=== PATIENT | female | born 1950 | race Caucasian/White ===

== ENCOUNTER 2020-03-08 21:53 | Observation (INO) | payer MEDICARE, MEDICAID ==
[~2020-03-08] VITALS: Ht 167.6 cm; Wt 116.1 kg
[2020-03-08 21:54] VITALS: BP 132/86
[2020-03-08 22:19] LABS: BASOPHIL % 0.4 % (0.0-0.2); EOSINOPHIL # 0.2 10^3/uL (0.0-0.2); EOSINOPHIL % 2.6 % (0.0-5.0); LYMPHOCYTES # 2.64 10^3/uL1 (1.0-4.8); LYMPHOCYTES % 32.2 % (24.0-44.0); MEAN CORP HGB 29.7 pg (26-34); MONOCYTES # 0.6 10^3/uL (0.3-0.8); MONOCYTES % 7.8 % (5.0-12.0); NEUTROPHIL # 4.7 10^3/uL (1.8-7.7); NEUTROPHILS % 56.8 % (41.0-85.0); PLATELET COUNT 325 10^3/uL (150-400); RED CELL DISTRIBUTION WIDTH 12.6 % (11.5-14.5)
[2020-03-08 22:30] VITALS: BP 159/88
[2020-03-08 22:48] LABS: ALANINE AMINOTRANSFERASE(ML) 23 U/L (12-78); ALKALINE PHOSPHATASE 75 U/L (50-136); ASPARTATE AMINO TRANSFERASE 10 U/L (0-35); CALCIUM 9.1 mg/dL (8.4-10.5); CARBON DIOXIDE 31.2 mmol/L (20.0-32); GLUCOSE 351 mg/dL (70-110)
--- NOTE | 2020-03-08 22:53 | DIREP ---
PROCEDURE:CHEST 1 VIEW COMPARISON:None. INDICATIONS:Chest pain FINDINGS: LUNGS/PLEURA:No significant pulmonary parenchymal abnormalities. No effusions. VASCULATURE:Normal. Unremarkable pulmonary vasculature. CARDIAC: Left subclavian cardiac pacing device. MEDIASTINUM:Normal. No visible mass or adenopathy. BONES:Normal. No fracture or visible bony lesion. OTHER:Negative. CONCLUSION: 1. No acute cardiopulmonary abnormality. Dictated by: Mo Canales Jr. on 03/08/2020 at 10:52 PM
[2020-03-08 23:00] VITALS: BP 143/71
--- NOTE | 2020-03-08 23:07 | ER.PDOC ---
General Chief Complaint: Chest Pain-Cardiac Nature Stated Complaint: CHEST PAIN Time seen by MD: 23:00 Source: patient Exam Limitations: no limitations History of Present Illness Initial Comments Chest pain mid chest radiating to left neck for 1 hour. Pain is 4/10. Timing/Duration: 1 hour Severity/Quality: moderate, pressure Radiation: neck Activities at Onset: rest Prior CP/Workup: No Prior Chest Pain Nitro Today/Relief: 0.4 mg x 1, Complete Relief Aspirin Today: 325 mg x 1 Associated Symptoms: shortness of breath Allergies: Coded Allergies: latex (Verified Allergy, Severe, RASH, 03/08/20) Uncoded Allergies: ADHESIVES (Allergy, Severe, RASH, 03/08/20) Past Medical History Medical History: cardiac problems, diabetes, hypertension Surgical History: back, pacemaker/ICD Social History Alcohol Use: none Drug Use: none Constitutional: no symptoms reported EENTM: no symptoms reported Respiratory: see HPI Cardiovascular: see HPI Gastrointestinal: no symptoms reported Genitourinary: no symptoms reported Musculoskeletal: no symptoms reported All Other Systems: Reviewed and Negative Physical Exam General Appearance: Obese Neck: Non-Tender, Full Range of Motion, Supple, Normal Inspection Respiratory: chest non-tender, lungs clear, normal breath sounds, no respiratory distress, no accessory muscle use Cardiovascular: Normal Peripheral Pulses, Regular Rate, Rhythm, No Edema, No Gallop, No JVD, No Murmur Gastrointestinal: Normal Bowel Sounds, No Organomegaly, No Pulsatile Mass, Non Tender, Soft Extremities: Normal Range of Motion, Non-Tender, Normal Inspection, No Pedal Edema, No Calf Tenderness, Normal Capillary Refill Neurologic/Psychiatric: lease analyst II-XII NML as Tested, No Motor/Sensory Deficits, Alert, Normal Mood/Affect, Oriented x 3 Skin: Normal Color, Warm/Dry Lymphatic: No Adenopathy Results/Orders Results/Orders Orders - LEÓN CHANG MD Cbc With Auto Diff (03/08/20 22:01) Comprehensive Metabolic Panel (03/08/20 22:01) Creatine Kinase (03/08/20 22:01) Creatine Kinase Mb (03/08/20 22:01) Troponin I (03/08/20 22:01) Probnp B-Type Director Of Land Acquisition (03/08/20 22:01) PT (03/08/20 22:01) Partial Thromboplastin Time. (03/08/20 22:01) D-Dimer (03/08/20 22:01) Xr Chest 1v (03/08/20 22:01) Ekg-Routine (03/08/20 22:01) Aspirin (Aspirin) (03/08/20 23:06) Vital Signs Date Time Temp Pulse Resp B/P (MAP) Pulse Ox O2 Delivery O2 Flow Rate FiO2 03/08/20 21:54 98.2 73 16 03/08/20 21:54 98.2 73 16 132/86 (101) 98 03/08/20 21:54 98.2 73 16 98 Laboratory Tests Test 03/08/20 22:15 White Blood Count 8.2 10^3/uL (4.5-11.0) Red Blood Count 4.72 10^6/uL (4.00-5.20) Hemoglobin 14.0 g/dL (12.0-15.0) Hematocrit 41.0 % (36.0-46.0) Mean Corpuscular Volume 86.9 fL (78-100) Mean Corpuscular Hemoglobin 29.7 pg (26-34) Mean Corpuscular Hemoglobin Concent 34.1 g/dL (33-36.5) Red Cell Distribution Width 12.6 % (11.5-14.5) Platelet Count 325 10^3/uL (150-400) Mean Platelet Volume 9.8 fL (7.8-11.0) Neutrophils (%) (Auto) 56.8 % (41.0-85.0) Lymphocytes (%) (Auto) 32.2 % (24.0-44.0) Monocytes (%) (Auto) 7.8 % (5.0-12.0) Neutrophils # (Auto) 4.7 10^3/uL (1.8-7.7) Lymphocytes # (Auto) 2.64 10^3/uL1 (1.0-4.8) Monocytes # (Auto) 0.6 10^3/uL (0.3-0.8) Absolute Immature Granulocyte (auto 0.02 10^3 u/L (0-2) Absolute Eosinophils (auto) 0.2 10^3/uL (0.0-0.2) Immature Granulocytes % 0.20 % (0.00-0.50) Eosinophils % 2.6 % (0.0-5.0) Basophils % 0.4 % (0.0-0.2) H Basophils # 0.0 10^3/uL (0.0-0.1) Prothrombin Time 10.0 SEC (9.3-11.3) Prothrombin Time INR (Non-Therap) 1.0 Activated Partial Thromboplast Time 21.9 SEC (24.67-30.72) D-Dimer 0.48 mg/L (0.19-0.49) Sodium Level 135 mmol/L (132-145) Potassium Level 4.1 mmol/L (3.6-5.2) Chloride Level 95.0 mmol/L (96-109) L Carbon Dioxide Level 31.2 mmol/L (20.0-32) Anion Gap 12.9 Blood Urea Nitrogen 18 mg/dL (7-18) Creatinine 1.14 mg/dL (0.59-1.40) Estimated GFR () 57.2 (>/=60) Est GFR (CKD-EPI)(Non-Afr Macedonian) 47.3 (>/=60) BUN/Creatinine Ratio 15.0 Glucose Level 351 mg/dL (70-110) H Calcium Level 9.1 mg/dL (8.4-10.5) Total Bilirubin 0.3 mg/dL (0.2-1.0) Aspartate Amino Transferase (AST) 10 U/L (0-35) Alanine Aminotransferase (ALT) 23 U/L (12-78) Alkaline Phosphatase 75 U/L (50-136) Total Creatine Kinase 48 U/L (26-192) Creatine Kinase MB 1.1 ng/mL (0.5-3.6) Troponin I < 0.02 ng/mL (0.00-0.05) Pro-B-Type Natriuretic Peptide 417 pg/mL (0-125) H Total Protein 7.8 g/dL (6.4-8.2) Albumin 3.5 g/dL (3.4-5.0) Globulin 4.3 EKG/XRAY/CT/US EKG: NSR XRAY: chest (No active disease) Departure Time of Disposition: 23:44 Disposition: 09 ADMITTED INPATIENT Impression: Primary Impression: Chest pain Condition: Stable Referrals: PCP,UNKNOWN (PCP) PRIMARY CARE PROVIDER Comments Admitted to Dr. Ayon Duration or Time Spent with Pa: 60 min Problem Qualifiers Primary Impression: Chest pain Chest pain type: unspecified Qualified Codes: R07.9 - Chest pain, unspecified LEÓN CHANG MD Mar 08, 2020 23:07
[2020-03-08 23:30] VITALS: BP 152/68
--- NOTE | 2020-03-08 23:38 | NUR ---
Ice water provided per Dr Mcclure's instruction.
[2020-03-08] MEDS: ASPIRIN PO STA (23:52)
--- NOTE | 2020-03-08 23:52 | NUR ---
Aspirin 325 mg PO
[2020-03-09 00:46] VITALS: BP 155/85
[2020-03-09 04:41] VITALS: BP 105/55
[2020-03-09 08:54] VITALS: BP 166/76
[2020-03-09] MEDS: HUMALOG SQ SCH (09:47)
[2020-03-09] MEDS ORDERED: DEXTROSE 50%-WATER SYRINGE IV PRN (10:00)
[2020-03-09] MEDS ORDERED: TRIA1TAB3 PO (11:01)
[2020-03-09] MEDS ORDERED: INSU100I13 SQ (11:01)
[2020-03-09] MEDS ORDERED: METF10007 PO (11:01)
[2020-03-09] MEDS ORDERED: SPIR25TA PO (11:01)
--- NOTE | 2020-03-09 11:16 | PCM.EKG ---
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
--- NOTE | 2020-03-09 11:52 | PCM.HP ---
HISTORY & PHYSICAL HISTORY & PHYSICAL DATE OF ADMISSION: 03/09/20 CHIEF COMPLAINT: "funny feeling" HISTORY OF PRESENT ILLNESS: Ms. Anguiano is a very pleasant 69 y/o CF with PMHx of HTN, Insulin Dependent DM2, and hx of AICD placement for 'passing out' presents with a "funny feeling". This came on after dinner as she was walking to her car. She felt back to normal after a few seconds. She was able to continue walking to the car without falls. She did feel slightly tired after this "spell". She reports that she felt "out of it" for a few seconds and that she gets these "spells" every few months. Her primary care physician in [facility] has not been able to find anything wrong as a cause. She denies palpitations/racing herat, chest pain, chest pressure or passing out. She denies recent head trauma. She does have occasional mild headaches but none presently. She denies history of seizure activity. She denies any weakness, numbness speech changes, facial droop or confusion. She did not take her blood sugar at the time of this event. Her AICD did not fire. She denies SOB, cough, fever, dysuria, n/v, bleeding, leg swelling or sick contacts. Reports nml stress test 2mo ago. Her cart driver is Dr. Bunn. She lives in [facility] and is here visiting her brother. She has an appt scheduled with her PCP for when she gets back in town. ALLERGIES: Latex CURRENT MEDICATIONS: Spironolactone Triamterine/HCTZ Levemir 50U BID Metformin 1000mg BID PAST MEDICAL HISTORY: HTN, IDDM2, AICD, denies CAD, denies hx of CVA, denies CHF, denies hx of seizures or any other neurologic disorders SOCIAL HISTORY: Denies smoking/etoh/drug use FAMILY HISTORY: Denies REVIEW OF SYSTEMS: See HPI PHYSICAL EXAMINATION: GENERAL: Chronically ill appearing, NAD, comfortable VITAL SIGNS: BP 132/86, HR 70s, RR 16, T 98.2, O2 98% on RA HEENT: MMM, PERRL, EOMI NECK: Supple LUNGS: CTA, nonlabored on RA HEART: RRR ABDOMEN: Soft, NTND EXTREMITIES: distal pulses nml NEUROLOGIC: CN intact as tested, AOx4, no tremor, no slurred speech, nml sensation and strength in all extremities, gait nml LABORATORY DATA: EKG NSR CXR NAD Ddimer 0.48, INR 1.0, troponin < 0.02 x 2 WBC 8.2, Hgb 14.0, Hct 41.0, Plt 325 Na 135, K 4.1, Cl 95, BUN 18, Cr 1.14, Glc 333 BNP 417 IMPRESSION/PLAN: 1. Presyncopal episode--unclear etiology. Seems to have been mild. Highest on my ddx is hyper or hypoglycemic episode given elevated sugars here. Also on ddx cardiomyopathy/arrhythmia, atypical seizure, complex migraine, orthostasis or other. - VSS here and telemetry unremarkable. Troponin neg x 2. - No e/o seizure activity - She feels back to her nml self today and is requesting to leave. - I recommended echo, better blood sugar control, consideration of tele neuro consult for EEG set up and CT head to r/o any abnormalities. She declined these and prefers to see her PCP in [place]. She understands missing these diagnoses could lead to decline in medical condition or . However, I do believe the likelihood of missing a serious medical condition is very small, and it is reasonable to continue this workup as an outpatient. - ER warnings given 2. Chronic conditions -DM2--uncontrolled, declines further management here. Give lantus 20U now if she allows and then continue 50UBID levemir at home. Recommend keeping blood sugar log and close PCP follow up. Hyper and hypoglycemic warnings given. -HTN--controlled, continue home meds Dispo--dc today AMA SALAZAR DO Mar 09, 2020 11:52
[2020-03-09] MEDS: LANTUS SQ STA (12:20)
[2020-03-09 12:31] VITALS: BP 134/82
--- NOTE | 2020-03-09 12:37 | PRM.DC ---
Discharge Summary Chief Complaint: "funny feeling" HPI and Diagnostic Evaluation CHIEF COMPLAINT: "funny feeling" HISTORY OF PRESENT ILLNESS: Ms. Cardoza is a very pleasant 69 y/o CF with PMHx of HTN, Insulin Dependent DM2, and hx of AICD placement for 'passing out' presents with a "funny feeling". This came on after dinner as she was walking to her car. She felt back to normal after a few seconds. She was able to continue walking to the car without falls. She did feel slightly tired after this "spell". She reports that she felt "out of it" for a few seconds and that she gets these "spells" every few months. Her primary care physician in [facility] has not been able to find anything wrong as a cause. She denies palpitations/racing herat, chest pain, chest pressure or passing out. She denies recent head trauma. She does have occasional mild headaches but none presently. She denies history of seizure activity. She denies any weakness, numbness speech changes, facial droop or confusion. She did not take her blood sugar at the time of this event. Her AICD did not fire. She denies SOB, cough, fever, dysuria, n/v, bleeding, leg swelling or sick contacts. Reports nml stress test 2mo ago. 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 Bunn. She lives in [facility] and is here visiting her brother. She has an appt scheduled with her PCP for when she gets back in town. Allergies: Coded Allergies: latex (Verified Allergy, Severe, RASH, 03/08/20) Uncoded Allergies: ADHESIVES (Allergy, Severe, RASH, 03/08/20) [place] [address] [phone] EEG/EKG REPORT PATIENT NAME: DOROTHY CARDOZA MR#: [id number] : 1950 LOCATION: ROOM#: 339 BED: A SEX: F AGE: 69 ADMIT/REGISTRATION DATE/TIME:03/08/20; 2 357 ORDERING PHYSICIAN: JORDY cc: [facility] Test Date: 2020-03-08 Test Time: 21:44:59 Pat Name: DOROTHY CARDOZA Department: Room: [facility] Gender: F Ramp Jockey: MARY : 1950 Requested By: LEÓN CHANG Order Number: [id number] Reading MD: Measurements Intervals [place] Rate: 78 P: 28 [place]: 173 QRS: -24 QRSD: 164 T: 92 QT: 433 QTc: 494 Interpretive Statements Sinus rhythm Left bundle branch block No previous ECG available for comparison Please click the below link to view image of tracing. DIAGNOSTIC IMAGING REPORT STATUS: SIGNED PATIENT NAME: DOROTHY CARDOZA MR#: [id number] : 1950 SEX: F AGE: 69 LOCATION: ER PT STATUS: [facility] ER ROOM/BED: ORDERING PROVIDER: LEÓN CHANG MD REPORT#: [id number] SERVICE DATE/TIME:03/08/202152 ACCESSION NUMBER(S): [id number] PROCEDURE:CHEST 1 VIEW COMPARISON:None. INDICATIONS:Chest pain FINDINGS: LUNGS/PLEURA:No significant pulmonary parenchymal abnormalities. No effusions. VASCULATURE:Normal. Unremarkable pulmonary vasculature. CARDIAC: Left subclavian cardiac pacing device. MEDIASTINUM:Normal. No visible mass or adenopathy. BONES:Normal. No fracture or visible bony lesion. OTHER:Negative. CONCLUSION: 1. No acute cardiopulmonary abnormality. Dictated by: Mo Canales Jr. on 03/08/2020 at 10:52 PM Home Meds Reported Medications Metformin Hcl (METFORMIN HCL) 1,000 Mg Tablet, 1 TAB PO DAILY24, #60 TAB 5 Refills 03/09/20 Triamterene/Hydrochlorothiazid (TRIAMTERENE-HCTZ 37.5-25 MG TB) 1 Each Tablet, 1 TAB PO DAILY, #30 TAB 5 Refills 03/09/20 Insulin Glargine,Hum.rec.anlog (LANTUS SOLOSTAR) 100 Unit/1 Ml Insuln.pen, 50 UNITS SQ BID, #15 MILLILITER 3 Refills 03/09/20 Spironolactone 25MG (ALDACTONE 25MG) 25 Mg Tablet, 1 TAB PO DAILY, #90 TAB 1 Refill 03/09/20 Scheduled Insulin Glargine,Hum.rec.anlog (Lantus Solostar), 50 UNITS SQ BID, (Reported) Metformin Hcl (Metformin Hcl), 1 TAB PO DAILY24, (Reported) Spironolactone 25MG (Aldactone 25MG), 1 TAB PO DAILY, (Reported) Triamterene/Hydrochlorothiazid (Triamterene-Hctz 37.5-25 Mg Tb), 1 TAB PO DAILY, (Reported) Procedures Laboratory Tests Test 03/08/20 22:15 03/09/20 05:08 03/09/20 08:53 White Blood Count 8.2 10^3/uL (4.5-11.0) Red Blood Count 4.72 10^6/uL (4.00-5.20) Hemoglobin 14.0 g/dL (12.0-15.0) Hematocrit 41.0 % (36.0-46.0) Mean Corpuscular Volume 86.9 fL (78-100) Mean Corpuscular Hemoglobin 29.7 pg (26-34) Mean Corpuscular Hemoglobin Concent 34.1 g/dL (33-36.5) Red Cell Distribution Width 12.6 % (11.5-14.5) Platelet Count 325 10^3/uL (150-400) Mean Platelet Volume 9.8 fL (7.8-11.0) Neutrophils (%) (Auto) 56.8 % (41.0-85.0) Lymphocytes (%) (Auto) 32.2 % (24.0-44.0) Monocytes (%) (Auto) 7.8 % (5.0-12.0) Neutrophils # (Auto) 4.7 10^3/uL (1.8-7.7) Lymphocytes # (Auto) 2.64 10^3/uL1 (1.0-4.8) Monocytes # (Auto) 0.6 10^3/uL (0.3-0.8) Absolute Immature Granulocyte (auto 0.02 10^3 u/L (0-2) Absolute Eosinophils (auto) 0.2 10^3/uL (0.0-0.2) Immature Granulocytes % 0.20 % (0.00-0.50) Eosinophils % 2.6 % (0.0-5.0) Basophils % 0.4 % (0.0-0.2) Basophils # 0.0 10^3/uL (0.0-0.1) Prothrombin Time 10.0 SEC (9.3-11.3) Prothrombin Time INR (Non-Therap) 1.0 Activated Partial Thromboplast Time 21.9 SEC (24.67-30.72) D-Dimer 0.48 mg/L (0.19-0.49) Sodium Level 135 mmol/L (132-145) Potassium Level 4.1 mmol/L (3.6-5.2) Chloride Level 95.0 mmol/L (96-109) Carbon Dioxide Level 31.2 mmol/L (20.0-32) Anion Gap 12.9 Blood Urea Nitrogen 18 mg/dL (7-18) Creatinine 1.14 mg/dL (0.59-1.40) Estimated GFR () 57.2 (>/=60) Est GFR (CKD-EPI)(Non-Afr Malian) 47.3 (>/=60) BUN/Creatinine Ratio 15.0 Glucose Level 351 mg/dL (70-110) Calcium Level 9.1 mg/dL (8.4-10.5) Total Bilirubin 0.3 mg/dL (0.2-1.0) Aspartate Amino Transf (AST/SGOT) 10 U/L (0-35) Alanine Aminotransferase (ALT/SGPT) 23 U/L (12-78) Alkaline Phosphatase 75 U/L (50-136) Total Creatine Kinase 48 U/L (26-192) Creatine Kinase MB 1.1 ng/mL (0.5-3.6) Troponin I < 0.02 ng/mL (0.00-0.05) < 0.02 ng/mL (0.00-0.05) Pro-B-Type Natriuretic Peptide 417 pg/mL (0-125) Total Protein 7.8 g/dL (6.4-8.2) Albumin 3.5 g/dL (3.4-5.0) Globulin 4.3 Bedside Glucose 333 (70 - 110) Hospital Course Ms. Cardoza presented with a vague sensation for a few seconds, described as a funny feeling. She had a difficult time providing accurate medical history while she was here, but this seemed most consistent with a presyncopal episode of unclear etiology. This was transient and with complete resolution, without any focal neruologic deficits to suggest CVA or TIA. Highest on my ddx is hyper or hypoglycemic episode given elevated sugars here. Also on ddx cardiomyopathy/arrhythmia, atypical seizure, complex migraine, orthostasis or other but these are much less likely. Vital signs were stable here and telemetry was unremarkable. Troponin was neg x 2 suggesting this was not an ischemic event, adn her AICD did not fire. She did have a LBBB on her EKG which she thinks is chronic. She has no hx of seizures and showed no post ictal state or e/o seizure activity here. She feels completely back to her nml self today (and did a few minutes after the event) and is requesting to leave. I recommended echo, better blood sugar control, consideration of tele neuro consult for EEG set up and CT head to r/o any abnormalities. She declined these and prefers to see her PCP in [place]. She understands missing these diagnoses could lead to decline in medical condition or . However, I do believe the likelihood of missing a serious medical condition is very small, and it is reasonable to continue this workup as an outpatient. ER warnings were given as well as follow up measures to be done with her primary doctor. Regarding her chronic conditions, her DM2 is uncontrolled, but she declines further management here. Recommend keeping blood sugar log and close PCP follow up. Hyper and hypoglycemic warnings given. Blood pressure was controlled and home meds were continued. She will discharge home and be with her brother until she returns to [place]. Condition/Impression stable condition on discharge See H&P for exam AMA SALAZAR DO Mar 09, 2020 12:37
[2020-03-09 13:11] VITALS: BP 134/82
--- NOTE | 2020-03-09 13:11 | NUR ---
DISCHARGE IV DC'D, NO SWELLING OR REDNESS NOTED AT SITE. TELE DC'D. PATIENT GIVEN DISCHARGE PACKET, EDUCATION ON WHEN TO SEEK MEDICAL ATTENTION, SCHEDULING A FOLLOW UP APPT WITH PCP AND WHAT TO TAKE TO THAT APPT. PATIENT IS STABLE WITH NO SIGNS OF DISTRESS NOTED. PATIENT TAKEN TO PRIVATE VEHICLE DRIVEN BY FAMILY MEMBER VIA WHEELCHAIR BY THIS NURSE. RELINQUISHING CARE OF PATIENT AT THIS TIME.
[2020-03-10] MEDS ORDERED: MAXZIDE 37.5 MG-25 MG TABLET PO SCH (09:00)
[2020-03-10] MEDS ORDERED: ALDACTONE PO SCH (09:00)
== END 2020-03-09 13:15 | disposition home or self-care (01) ==
LOC: ER 21:53 → MS 23:57 → EDBEDREQSVC 23:59
PROVIDERS: ADMIT Family Medicine; ATTEND Family Medicine
DX: R55 Syncope and collapse (principal); E11.9 Type 2 diabetes mellitus without complications; I10 Essential (primary) hypertension; I44.7 Left bundle-branch block, unspecified; Z79.4 Long term (current) use of insulin; Z95.810 Presence of automatic (implantable) cardiac defibrillator
CPT/HCPCS: 36415 ×2; 71045; 80053; 82550; 82553; 82948; 83880; 84484 ×2; 85025; 85379; 85610; 85730; 93005; 99285; G0378 ×2